=== PATIENT | female | born 1930 | race Caucasian/White ===

== ENCOUNTER 2016-12-03 17:18 | Emergency (ER) | payer MEDICARE ==
[~2016-12-03 17:18] MED LIST: ASPIRIN325 M2 PO; CAL MAG ZINC +1 EACH PO; COREG6.25 MG PO; CRANBERRY250 MG PO; KLOR-CON M1010 ME1 PO; LASIX80 MG PO; LISINOPRIL10 M1 PO; MELOXICAM15 MG PO; METFORMIN500 MG PO; SIMVASTATIN20 MG PO; STOOL SOFTENER100 M3 PO; SYNTHROID,LEV112 MCG PO; VICODIN 5-3001 EACH PO
[2016-12-03] MEDS ORDERED: HYDROCODONE BIT1 T11 PO (19:12)
== END 2016-12-03 19:17 | disposition home or self-care (01) ==
LOC: ED 17:18
DX: M79.89 Other specified soft tissue disorders (principal); M25.561 Pain in right knee; Z88.2 Allergy status to sulfonamides; Z79.899 Other long term (current) drug therapy; Z79.82 Long term (current) use of aspirin